=== PATIENT | male | born 1950 | race Hispanic/Latino ===

== ENCOUNTER → 2018-11-02 | Outpatient (CLI) | payer OTHER | END | disposition home or self-care (01) | LOC: OIH 11:00 | PROVIDERS: ATTEND Family Medicine | DX: J84.10 Pulmonary fibrosis, unspecified (principal); I10 Essential (primary) hypertension | CPT/HCPCS: 71046 ==

== ENCOUNTER → 2018-12-24 | Outpatient (CLI) | payer OTHER | END | disposition home or self-care (01) | LOC: SHCH 09:57 | PROVIDERS: ATTEND Internal Medicine Cardiovascular Disease | DX: I08.0 Rheumatic disorders of both mitral and aortic valves (principal) | CPT/HCPCS: 93306 ==

== ENCOUNTER → 2018-12-25 | Outpatient (CLI) | payer OTHER ==
[~2018-12-25] VITALS: Ht 172.7 cm; Wt 83.9 kg
[~2018-12-25] MED LIST: REGADENOSON 0.4 MG/5 ML PF SYG IVP SCH
== END | disposition home or self-care (01) ==
LOC: SHCH 07:57
PROVIDERS: ATTEND Internal Medicine Cardiovascular Disease
DX: I35.0 Nonrheumatic aortic (valve) stenosis (principal); R94.31 Abnormal electrocardiogram [ECG] [EKG]
CPT/HCPCS: 78452; A9500 ×2; J2785

== ENCOUNTER → 2020-04-21 | Outpatient (CLI) | payer OTHER | END | disposition home or self-care (01) | LOC: SHCH 11:27 | PROVIDERS: ATTEND Internal Medicine Cardiovascular Disease | DX: I10 Essential (primary) hypertension (principal) | CPT/HCPCS: 93306 ==

== ENCOUNTER → 2021-12-20 | Outpatient (CLI) | payer OTHER | END | disposition home or self-care (01) | LOC: SHCH 09:44 | PROVIDERS: ATTEND Internal Medicine Cardiovascular Disease | DX: I87.2 Venous insufficiency (chronic) (peripheral) (principal) | CPT/HCPCS: 93970 ==

== ENCOUNTER → 2022-01-22 | Outpatient (CLI) | payer OTHER | END | disposition home or self-care (01) | LOC: SHCH 08:49 | PROVIDERS: ATTEND Internal Medicine Cardiovascular Disease | DX: I35.0 Nonrheumatic aortic (valve) stenosis (principal); R06.02 Shortness of breath; R60.0 Localized edema | CPT/HCPCS: 78452; 93017; 96374; A9500 ×2; J2785 ==

== ENCOUNTER → 2022-07-06 | Outpatient (CLI) | payer OTHER | END | disposition home or self-care (01) | LOC: SHCH 13:18 | PROVIDERS: ATTEND Internal Medicine Cardiovascular Disease | DX: I87.2 Venous insufficiency (chronic) (peripheral) (principal); I70.203 Unspecified atherosclerosis of native arteries of extremities, bilateral legs | CPT/HCPCS: 93925; 93970 ==

== ENCOUNTER → 2023-01-29 | Outpatient (CLI) | payer OTHER | END | disposition home or self-care (01) | LOC: SHCH 07:41 | PROVIDERS: ATTEND Internal Medicine Cardiovascular Disease | DX: I08.0 Rheumatic disorders of both mitral and aortic valves (principal) | CPT/HCPCS: 93306 ==

== ENCOUNTER 2023-08-25 08:04 | Day surgery (SDC) | payer OTHER ==
[2023-08-21 13:21] LABS: BASOPHILS # (AUTO) 0.04 K/uL (0.00-0.20); BASOPHILS % (AUTO) 0.5 % (0.0-5.0); EOSINOPHILS # (AUTO) 0.21 K/uL (0.00-0.70); EOSINOPHILS % (AUTO) 2.5 % (0.0-8.0); HEMATOCRIT 39.4 % (42-54); IMMATURE GRANULOCYTE ABSOLUTE 0.03 K/uL (0-1); LYMPHOCYTES # (AUTO) 1.2 K/uL (1.0-4.8); MEAN CORPUSCULAR HEMOGLOBIN 29.1 pg (27.0-33.0); MEAN CORPUSCULAR HGB CONC 33.5 g/dL (32.0-36.0); MEAN CORPUSCULAR VOLUME 86.8 fL (79-99); MONOCYTES # (AUTO) 0.6 K/uL (0.1-1.0); MONOCYTES % (AUTO) 7.6 % (3.0-13.0); NEUTROPHILS # (AUTO) 6.1 K/uL (1.8-7.7); PLATELET COUNT (AUTO) 214 K/uL (130-400); RED BLOOD CELL COUNT(AUTO) 4.54 MIL/uL (4.50-6.20); RED CELL DISTRIBUTION WIDTH 13.6 % (11.0-15.5); WHITE BLOOD COUNT (AUTO) 8.3 K/uL (4.8-10.8)
[2023-08-21 13:30] LABS: POTASSIUM 4.6 mmol/L (3.5-5.1)
[2023-08-21 13:32] LABS: INR < 0.93 (0.85-1.15); PROTHROMBIN TIME 10.4 SEC (9.6-11.6)
[2023-08-21 13:57] VITALS: BP 156/59; PULSE 54; RESP 18
[2023-08-25] VITALS (13 sets, daily range): BP systolic 104–146; BP diastolic 43–68; PULSE 42–58; RESP 15–18
[~2023-08-25] VITALS: Ht 172.7 cm; Wt 83.7 kg
[~2023-08-25 08:04] MED LIST changes: +AMLO-258 PO; +CYAN100084 PO; +FAMO40TA7 PO; +METO-408 PO; +PANT40TA54 PO; +PRAV40TA3 PO; -REGADENOSON 0.4 MG/5 ML PF SYG IVP SCH; +TAMS-1 PO
[2023-08-25] MEDS ORDERED: 0.9%NACL 1000ML 1,000 ML IV ONE (08:38)
[2023-08-25] MEDS ORDERED: LIDOCAINE HCL 400MG/20ML VIAL ONE (10:17)
[2023-08-25] MEDS ORDERED: IOHEXOL-350 50ML VIAL IV ONE (10:17)
[2023-08-25] MEDS ORDERED: IOHEXOL 350 MG/ML 100ML INFUS..BTL IV ONE (10:17)
[2023-08-25] MEDS ORDERED: HEPARIN 10,000 UNIT/10ML (1,000 UNIT/ML) VIAL ONE (10:17)
[2023-08-25] MEDS ORDERED: NITROGLYCERIN 50MG VIAL ONE (10:18)
[2023-08-25] MEDS ORDERED: MIDAZOLAM HCL 1 MG/ML 2ML VIAL ONE ×2 (10:29→10:56)
[2023-08-25] MEDS ORDERED: FENTANYL CITRATE PF 50 MCG/1 ML 2ML VIAL ONE (10:29)
[2023-08-25] MEDS ORDERED: NITROGLYCERIN 0.4 MG SL TAB SL PRN (11:30)
[2023-08-25] MEDS ORDERED: GLUCAGON 1MG KIT 1 MG ML IM PRN (11:30)
[2023-08-25] MEDS ORDERED: 0.9%NACL 1000ML 1,000 ML IV SCH (11:30)
[2023-08-25] MEDS ORDERED: DEXTROSE 50%-WATER 50 ML DISP.SYRIN IV PRN (11:30)
== END 2023-08-25 17:20 | disposition home or self-care (01) ==
LOC: DAH 08:04
PROVIDERS: ATTEND Internal Medicine Cardiovascular Disease
DX: I25.110 Atherosclerotic heart disease of native coronary artery with unstable angina pectoris (principal); I37.1 Nonrheumatic pulmonary valve insufficiency; I77.810 Thoracic aortic ectasia; I11.0 Hypertensive heart disease with heart failure; I50.32 Chronic diastolic (congestive) heart failure; J44.9 Chronic obstructive pulmonary disease, unspecified; E78.5 Hyperlipidemia, unspecified; I87.1 Compression of vein; I87.2 Venous insufficiency (chronic) (peripheral); J90 Pleural effusion, not elsewhere classified; Z79.01 Long term (current) use of anticoagulants; Z79.899 Other long term (current) drug therapy; Z82.3 Family history of stroke; Z95.820 Peripheral vascular angioplasty status with implants and grafts
CPT/HCPCS: 80048; 85025; 85610; 85730; 36415 ×2; 71045; 93005; 93456; 93567; 83880; 93306; 93356; C1894 ×3; C1769 ×2; J3010; J3490 ×2; J7030; J1644 ×2; J2250 ×2; Q9967; A4215; A4222; A4221; A4663; A4216; A4606; Q9965; A4223 ×3; 99156; 99157

== ENCOUNTER 2023-11-03 09:32 | Emergency (ER) | payer OTHER ==
[~2023-11-03] VITALS: Ht 172.7 cm; Wt 74.8 kg
[~2023-11-03 09:32] MED LIST changes: +AEC81 PO; -AMLO-258 PO; -METO-408 PO
[2023-11-03 11:15] VITALS: BP 126/62; PULSE 82; RESP 17; O2SAT 100
== END 2023-11-03 11:35 | disposition home or self-care (01) ==
LOC: EDH 09:32
DX: T82.848A Pain due to vascular prosthetic devices, implants and grafts, initial encounter (principal); Z95.1 Presence of aortocoronary bypass graft; I10 Essential (primary) hypertension; E78.00 Pure hypercholesterolemia, unspecified; Z88.6 Allergy status to analgesic agent; Z79.82 Long term (current) use of aspirin; Z79.899 Other long term (current) drug therapy; Z98.890 Other specified postprocedural states
CPT/HCPCS: 71046

== ENCOUNTER → 2023-12-24 | Outpatient (CLI) | payer OTHER ==
[~2023-12-24] MED LIST changes: +IOHEXOL-350 75 ML VIAL IV ONE
== END | disposition home or self-care (01) ==
LOC: RAH 09:34
PROVIDERS: ATTEND Internal Medicine Cardiovascular Disease
DX: R06.02 Shortness of breath (principal); K44.0 Diaphragmatic hernia with obstruction, without gangrene; K80.20 Calculus of gallbladder without cholecystitis without obstruction; N28.1 Cyst of kidney, acquired; I51.7 Cardiomegaly; M47.9 Spondylosis, unspecified
CPT/HCPCS: 71270; Q9967

== ENCOUNTER → 2023-12-25 | Outpatient (CLI) | payer OTHER ==
[~2023-12-25] MED LIST changes: +FENTANYL CITRATE PF 50 MCG/1 ML 2ML VIAL ONE; +GLYCOPYRROLATE 0.2 MG/ML 5 ML VIAL ONE; +MIDAZOLAM HCL 1 MG/ML 2ML VIAL ONE; +PROPOFOL 10 MG/ML 20ML VIAL IV ONE; +ROCURONIUM BROMIDE 10MG/1ML 5ML VL ONE
== END | disposition home or self-care (01) ==
LOC: SHCH 13:28
PROVIDERS: ATTEND Internal Medicine Cardiovascular Disease
DX: I11.9 Hypertensive heart disease without heart failure (principal); R06.02 Shortness of breath; E78.5 Hyperlipidemia, unspecified; Z95.1 Presence of aortocoronary bypass graft
CPT/HCPCS: 93306; J3010 ×3; J3490 ×2; J2250; J2704; Q9967

== ENCOUNTER 2025-07-20 09:51 | Emergency (ER) | payer OTHER ==
[~2025-07-20] VITALS: Ht 172.7 cm; Wt 78.0 kg
[2025-07-20 10:32] LABS: NUCLEATED RED BLOOD CELLS 0.0 % (0.0-0.19); PLATELET COUNT (AUTO) 223.0 K/uL (130-400); RED BLOOD CELL COUNT(AUTO) 4.44 MIL/uL (4.50-6.20); RED CELL DISTRIBUTION WIDTH 13.4 % (11.0-15.5); WHITE BLOOD COUNT (AUTO) 6.1 K/uL (4.8-10.8)
[2025-07-20 10:40] LABS: CREATININE 1.0 mg/dL (0.5-1.3); GLOMERULAR FILTR. RATE CALC 78.0 mL/min (>90); GLUCOSE,RANDOM 164.0 mg/dL (70-105); SODIUM SERUM 142.0 mmol/L (136-145); UREA NITROGEN, BLOOD 12.0 mg/dL (7-18)
--- NOTE | 2025-07-20 10:57 | ERN ---
General Chief Complaint: Lower Extremity Pain/Injury Stated Complaint: LEG PAIN Time Seen by MD: 09:55 Source: patient History of Present Illness Initial Comments Patient is a 75-year-old gentleman coming in complaining of right back pain. Long with the back pain patient states that the pain radiates down the right leg through the gluteal region. Patient states that he has had something similar like this in the past saw his PCP sent him some anti spasmodic but states they are not working. Allergies: Coded Allergies: aspirin (Unverified Allergy, Severe, HIVES, 09/20/23) atorvastatin (Unverified Allergy, Unknown, SEVERE COUGH, 09/20/23) Home Meds Reported Medications Pantoprazole Sodium (Pantoprazole Sodium) 40 Mg Tablet.dr, 40 MG PO AM, TAB 09/17/23 Aspirin (ASPIRIN 81 MG ECTAB) 81 Mg Ectab, 81 MG PO HS, TAB.EC 09/17/23 Famotidine (Famotidine) 40 Mg Tablet, 40 MG PO HS, TAB 08/21/23 Pravastatin Sodium (Pravastatin Sodium) 40 Mg Tablet, 20 MG PO HS, TAB 08/21/23 Cyanocobalamin (Vitamin B-12) (B-12) 1,000 Mcg Tablet.er, 2000 MCG PO HS, TAB 08/21/23 Tamsulosin HCl (Flomax) 0.4 Mg Cap.er.24h, 0.8 MG PO HS, CAPSULE.DR 08/21/23 Past Medical History Past Medical History: Diabetes-Type II, High Cholesterol, Heart Disease, Hypertension, Hypothyroid Past Surgical History: CABG, Other Surgical History Other: RT ANKLE SX ROS Dictation CONSTITUTIONAL: No chills, no fever, no weakness, no diaphoresis, no malaise. HEAD/FACE: No signs of trauma. EENT: No eye pain, no blurred vision, no tearing, no double vision, no ear pain, no ear discharge, no nose pain, no nasal congestion, no throat pain, no throat swelling, no mouth pain. RESPIRATORY: No cough, no orthopnea, no SOB, no stridor, no wheezing. CARDIOVASCULAR: No chest pain, no edema, no palpitations, no syncope. GASTROINTESTINAL/ABDOMINAL: No abdominal pain, no constipation, no diarrhea, no nausea, no vomiting. GENITOURINARY: No abnormal discharge, no dysuria, no frequent urination, no hematuria. No complaints of pain in the genitals. MUSCULOSKELETAL: back pain, no gout, no joint pain, no joint swelling, muscle pain, no muscle stiffness, no neck pain. INTEGUMENTARY: No change in color, no change in hair/nails, no dryness, no lesion, no lumps, no rash. NEUROLOGICAL/PSYCH: No anxiety, not depressed, no emotional problem, no headache, no numbness, no pre-existing deficit, no history of seizures, no tremors, no weakness. HEMATOLOGIC/LYMPHATIC: Not anemic, no history of blood clots, no apparent bleeding, no bruising, glands not swollen. All Systems Negative, Except as Noted. Physical Exam Physical Exam Dictation VITAL SIGNS: Reviewed. GENERAL APPEARANCE: Alert, oriented x3, no acute distress, obese. HEAD AND FACE: Non-traumatic. EYES: PERRL, pink conjunctivas, eyelid no trauma, anterior chamber clear. EARS: Pinnas intact and no signs of trauma or erythema. Ear canals clear and no discharge. TMs no erythema. NOSE: No discharge, no bleeding. OROPHARYNX: Mouth normal, teeth no caries, tongue pink. Pharynx clear, no erythema. Tonsils no exudates, no abscesses noted. Mucous membrane moist. NECK: Supple, non-tender, no thyromegaly, no masses, no JVD, no bruits. BREAST: Deferred. CHEST: No tenderness, no crepitus, no paradoxical movement, no retractions. LUNGS: Clear, well-ventilated, symmetric, no rales, no wheezing, no rhonchi, no stridor, good breath sounds bilaterally. HEART: Regular rate, regular rhythm, no murmur, no gallops. VASCULAR: No peripheral edema. ABDOMEN: Soft, positive bowel sounds, nondistended, no guarding, nontender, no rebound, no masses no hepatomegaly, no splenomegaly, no Austin's sign, no hernias. RECTAL: Deferred. GENITAL: Deferred. NEUROLOGICAL: Normal speech, gross motor function intact, gross sensory function intact. MUSCULOSKELETAL: Neck nontender, full range of motion, back nontender, full range of motion. EXTREMITIES: Nontender, full range of motion. Right gluteal pain radiating down the right leg, piriformis muscle tenderness SKIN: Color pink, dry, no turgor, no rash, no lacerations, no abrasions, no contusions. LYMPHATICS: Deferred. Results Laboratory and Microbiology Lab and Micro Result Laboratory Tests Test 07/20/25 10:24 White Blood Count 6.1 K/uL (4.8-10.8) Red Blood Count 4.44 MIL/uL (4.50-6.20) L Hemoglobin 13.0 g/dL (14.0-18.0) L Hematocrit 39.3 % (42-54) L Mean Corpuscular Volume 88.5 fL (79-99) Mean Corpuscular Hemoglobin 29.3 pg (27.0-33.0) Mean Corpuscular Hemoglobin Concent 33.1 g/dL (32.0-36.0) Red Cell Distribution Width 13.4 % (11.0-15.5) Platelet Count 223 K/uL (130-400) Mean Platelet Volume 10.7 fL (7.5-10.5) H Nucleated Red Blood Cells 0.0 % (0.0-0.19) Sodium Level 142 mmol/L (136-145) Potassium Level 4.5 mmol/L (3.5-5.1) Chloride Level 104 mmol/L (101-111) Carbon Dioxide Level 29 mmol/L (21-32) Blood Urea Nitrogen 12 mg/dL (7-18) Creatinine 1.0 mg/dL (0.5-1.3) Glomerular Filtration Rate Calc 78 mL/min (>90) Random Glucose 164 mg/dL (70-105) H Total Calcium 9.0 mg/dL (8.5-10.1) Labs Reviewed?: Yes EKG/XRAY/US/CT/MRI X-RAY Comment X-ray of the hip-NAD MDM MDM: Differential diagnosis: Right-sided sciatica, right hip strain, right muscle strain, spasms of the lumbar area Rationale: Tests considered and ordered secondary to shared decision making inc lude: Previous outside records reviewed: Old ER visits. Risk of complication and/or morbidity or mortality of patient management: None Medications-Per medication reconciliation Need for hospitalization: Patient does not meet criteria for hospitalization. Need for emergency major/minor surgery: No Patient is a 75-year-old gentleman coming in complaining of right lower extremity pain. X-ray did not disclose acute findings. Patient received antispasmodics anti-inflammatories states that has pain has subsided. Patient will be discharged in stable condition with a diagnosis of right-sided sciatica. I did advised him appropriate follow up with PCP and/human resources support specialist for ongoing evaluation and management. ED Course Orders Procedure Category Date Status Time Cbc Without LAB 07/20/25 Complete Differential 10:15 Basic Metabolic Panel LAB 07/20/25 Complete 10:15 Hip Unilat 2-3vw Right RAD 07/20/25 Taken 10:27 Orphenadrine Citrate PHA 07/20/25 Complete (Norflex) 11:00 Acetaminophen 500mg PHA 07/20/25 Complete Tab (Tylenol 500mg T 11:00 Current Medications Medications (Trade) Dose Ordered Sig/Terence Route PRN Reason Start Time Stop Time Status Last Admin Dose Admin Acetaminophen (TYLenol 500MG TAB) 500 mg ONCE ONCE PO 07/20/25 11:00 07/20/25 11:01 DC Ketorolac Tromethamine (toRADol) 15 mg ONCE ONCE IM 07/20/25 11:00 07/20/25 10:45 DC Orphenadrine Citrate (Norflex) 60 mg ONCE ONCE IM 07/20/25 11:00 07/20/25 11:01 DC Vital Signs Date Time Temp Pulse Resp B/P (MAP) Pulse Ox O2 Delivery O2 Flow Rate FiO2 07/20/25 10:10 97.5 74 18 194/83 100 Room Air* 0 21 07/20/25 09:54 97.3 72 18 184/72 99 Room Air 0 DX & DISP Disposition: Discharge Departure Impression: Primary Impression: Sciatica, right side Condition: Stable Scripts Lidocaine (Lidocaine Pain Relief) 4 % Adh..patch 1 PATCH TP DAILY for 5 Days, #5 PATCH 0 Refills Prov: NASH LUNDY MD 07/20/25 Gabapentin (Gabapentin) 100 Mg Capsule 1 CAP PO BID for 7 Days, #14 CAP 0 Refills Prov: NASH LUNDY MD 07/20/25 Additional Instructions: FOLLOW-UP WITH PRIMARY CARE PROVIDER IN 1 TO 2 DAYS. TAKE MEDICATIONS DIRECTED HERE IN THE EMERGENCY ROOM. OKAY TO CONTINUE HOME MEDICATIONS UNLESS OTHERWISE DISCUSSED DURING YOUR VISIT IN THE EMERGENCY ROOM TODAY. RETURN TO YOUR NEAREST EMERGENCY ROOM IF SYMPTOMS WORSEN OR IF THERE IS NO IMPROVEMENT. CALL 911 IF YOU NEED IMMEDIATE ASSISTANCE. TAKE TYLENOL [id number] NEEDED AND IF NO CONTRAINDICATIONS ARE PRESENT. INCREASE ORAL HYDRATION. A WOUND CULTURE OR URINE CULTURE WAS ORDERED HERE IN THE EMERGENCY ROOM DEPARTMENT PLEASE FOLLOW-UP WITH PRIMARY CARE PROVIDER AND ADVISE THEM TO GET REPORTS FROM OUR FACILITY. IF YOU HAD ANY NESHA WRAP/SPLINTS THAT WERE APPLIED HERE, PLEASE DO NOT REMOVE THEM UNTIL YOU SEE YOUR PRIMARY CARE OR SPECIALTY. Referrals: Referrals: CODEY ARRIETA MD (PCP) ULISES PINEDA MD Time of Disposition: 11:31 YELENA CAMACHO MD Jul 20, 2025 10:57 NASH LUNDY MD Jul 20, 2025 11:33
[2025-07-20] MEDS ORDERED: ORPHENADRINE 60MG/2ML IM ONE (11:00)
[2025-07-20 11:57] VITALS: BP 169/59; PULSE 53; RESP 20; TEMP 98.1; O2SAT 100
--- NOTE | 2025-07-20 12:12 | HMCIMG ---
EXAM: XR Pelvis and right Hip, 2 Views. CLINICAL HISTORY: Rule out osteoarthritis COMPARISON: None provided. FINDINGS: BONES: No acute fracture. JOINTS: No dislocation. Minimal osteoarthritic changes are seen at both hip joints in the form of minimal narrowing of the hip joint spaces with no significant osteophyte formation. SOFT TISSUES: The soft tissues are unremarkable. A surgical prosthesis is seen at the pelvis, mostly an endovascular graft. IMPRESSION: 1. Minimal bilateral hip osteoarthritis 2. Surgical pelvic prosthesis, likely endovascular graft. /[place]
== END 2025-07-20 12:00 | disposition home or self-care (01) ==
LOC: EDH 09:51
DX: M54.31 Sciatica, right side (principal); E03.9 Hypothyroidism, unspecified; E11.9 Type 2 diabetes mellitus without complications; E78.00 Pure hypercholesterolemia, unspecified; I11.9 Hypertensive heart disease without heart failure; Z79.82 Long term (current) use of aspirin; Z88.6 Allergy status to analgesic agent; Z95.1 Presence of aortocoronary bypass graft; Z96.641 Presence of right artificial hip joint
CPT/HCPCS: 36415; 73502; 80048; 85027; 99284; J2360

== ENCOUNTER 2025-07-23 07:51 | Emergency (ER) | payer OTHER ==
[~2025-07-23] VITALS: Ht 172.7 cm; Wt 78.0 kg
[2025-07-23 07:54] VITALS: BP 124/79; PULSE 62; RESP 20; TEMP 97.9
--- NOTE | 2025-07-23 08:00 | NUR ---
PT JUST NOW PLACED IN ED BED 10
--- NOTE | 2025-07-23 08:03 | ERN ---
General Chief Complaint: Lower Extremity Pain/Injury Stated Complaint: RT SCIATICA PAIN Time Seen by MD: 07:55 Source: patient History of Present Illness Initial Comments Patient is a 75-year-old male coming in complaining of right-sided sciatica. Per patient in his had multiple visits to the ER with the same thing and states that the only medication that has helped some has a medication that is injected here. He is pending a visit to his patient resource specialist. Allergies: Coded Allergies: aspirin (Unverified Allergy, Severe, HIVES, 09/20/23) atorvastatin (Unverified Allergy, Unknown, SEVERE COUGH, 09/20/23) Home Meds Active Scripts Lidocaine (Lidocaine Pain Relief) 4 % Adh..patch, 1 PATCH TP DAILY for 5 Days, #5 PATCH 0 Refills Prov:NASH LUNDY MD 07/20/25 Gabapentin (Gabapentin) 100 Mg Capsule, 1 CAP PO BID for 7 Days, #14 CAP 0 Refills Prov:NASH LUNDY MD 07/20/25 Reported Medications Pantoprazole Sodium (Pantoprazole Sodium) 40 Mg Tablet.dr, 40 MG PO AM, TAB 09/17/23 Aspirin (ASPIRIN 81 MG ECTAB) 81 Mg Ectab, 81 MG PO HS, TAB.EC 09/17/23 Famotidine (Famotidine) 40 Mg Tablet, 40 MG PO HS, TAB 08/21/23 Pravastatin Sodium (Pravastatin Sodium) 40 Mg Tablet, 20 MG PO HS, TAB 08/21/23 Cyanocobalamin (Vitamin B-12) (B-12) 1,000 Mcg Tablet.er, 2000 MCG PO HS, TAB 08/21/23 Tamsulosin HCl (Flomax) 0.4 Mg Cap.er.24h, 0.8 MG PO HS, CAPSULE.DR 08/21/23 Past Medical History Past Medical History: Diabetes-Type II, High Cholesterol, Heart Disease, Hypertension, Hypothyroid Past Surgical History: CABG, Other Surgical History Other: RT ANKLE SX ROS Dictation CONSTITUTIONAL: No chills, no fever, no weakness, no diaphoresis, no malaise. HEAD/FACE: No signs of trauma. EENT: No eye pain, no blurred vision, no tearing, no double vision, no ear pain, no ear discharge, no nose pain, no nasal congestion, no throat pain, no throat swelling, no mouth pain. RESPIRATORY: No cough, no orthopnea, no SOB, no stridor, no wheezing. CARDIOVASCULAR: No chest pain, no edema, no palpitations, no syncope. GASTROINTESTINAL/ABDOMINAL: No abdominal pain, no constipation, no diarrhea, no nausea, no vomiting. GENITOURINARY: No abnormal discharge, no dysuria, no frequent urination, no hematuria. No complaints of pain in the genitals. MUSCULOSKELETAL: back pain, no gout, no joint pain, no joint swelling, muscle pain, no muscle stiffness, no neck pain. INTEGUMENTARY: No change in color, no change in hair/nails, no dryness, no lesion, no lumps, no rash. NEUROLOGICAL/PSYCH: No anxiety, not depressed, no emotional problem, no headache, no numbness, no pre-existing deficit, no history of seizures, no tremors, no weakness. HEMATOLOGIC/LYMPHATIC: Not anemic, no history of blood clots, no apparent bleeding, no bruising, glands not swollen. All Systems Negative, Except as Noted. Physical Exam Physical Exam Dictation VITAL SIGNS: Reviewed. GENERAL APPEARANCE: Alert, oriented x3, no acute distress, obese. HEAD AND FACE: Non-traumatic. EYES: PERRL, pink conjunctivas, eyelid no trauma, anterior chamber clear. EARS: Pinnas intact and no signs of trauma or erythema. Ear canals clear and no discharge. TMs no erythema. NOSE: No discharge, no bleeding. OROPHARYNX: Mouth normal, teeth no caries, tongue pink. Pharynx clear, no erythema. Tonsils no exudates, no abscesses noted. Mucous membrane moist. NECK: Supple, non-tender, no thyromegaly, no masses, no JVD, no bruits. BREAST: Deferred. CHEST: No tenderness, no crepitus, no paradoxical movement, no retractions. LUNGS: Clear, well-ventilated, symmetric, no rales, no wheezing, no rhonchi, no stridor, good breath sounds bilaterally. HEART: Regular rate, regular rhythm, no murmur, no gallops. VASCULAR: No peripheral edema. ABDOMEN: Soft, positive bowel sounds, nondistended, no guarding, nontender, no rebound, no masses no hepatomegaly, no splenomegaly, no Austin's sign, no hernias. RECTAL: Deferred. GENITAL: Deferred. NEUROLOGICAL: Normal speech, gross motor function intact, gross sensory function intact. MUSCULOSKELETAL: Neck nontender, full range of motion, back nontender, full range of motion. EXTREMITIES: Nontender, full range of motion. Right piriformis muscle tenderness on palpation SKIN: Color pink, dry, no turgor, no rash, no lacerations, no abrasions, no contusions. LYMPHATICS: Deferred. Results Laboratory and Microbiology Labs Reviewed?: Yes MDM MDM: Differential diagnosis: Right-sided sciatica, lumbar strain, acute on chronic back pain, Rationale: Tests considered and ordered secondary to shared decision making include: Previous outside records reviewed: Old ER visits. Risk of complication and/or morbidity or mortality of patient management: None Medications-Per medication reconciliation Need for hospitalization: Patient does not meet criteria for hospitalization. Need for emergency major/minor surgery: No Patient is a 75-year-old gentleman coming in complaining of right-sided sciatica. Patient has been having these symptoms for many months. He states that the only with thing that worse with the injections that he received here. Patient was injected with Norflex and Kenalog states he feels much better we will be discharged in stable condition I did advised him appropriate follow up with PCP and patient resource specialist for long-term management. ED Course Orders Procedure Category Date Status Time Orphenadrine Citrate PHA 07/23/25 Complete (Norflex) 08:00 Triamcinolone Acet PHA 07/23/25 Complete 40mg/Ml 1ml (Kenalog 08:00 Current Medications Medications (Trade) Dose Ordered Sig/Terence Route PRN Reason Start Time Stop Time Status Last Admin Dose Admin Orphenadrine Citrate (Norflex) 60 mg ONCE ONCE IM 07/23/25 08:00 07/23/25 08:07 DC 07/23/25 08:18 Triamcinolone Acetonide (Kenalog 40) 40 mg ONCE ONCE IM 07/23/25 08:00 07/23/25 08:07 DC 07/23/25 08:18 Vital Signs Date Time Temp Pulse Resp B/P (MAP) Pulse Ox O2 Delivery O2 Flow Rate FiO2 07/23/25 07:54 97.9 62 20 124/79 99 Room Air DX & DISP Disposition: Discharge Departure Impression: Primary Impression: Sciatica, right side Condition: Stable Additional Instructions: FOLLOW-UP WITH PRIMARY CARE PROVIDER IN 1 TO 2 DAYS. TAKE MEDICATIONS DIRECTED HERE IN THE EMERGENCY ROOM. OKAY TO CONTINUE HOME MEDICATIONS UNLESS OTHERWISE DISCUSSED DURING YOUR VISIT IN THE EMERGENCY ROOM TODAY. RETURN TO YOUR NEAREST EMERGENCY ROOM IF SYMPTOMS WORSEN OR IF THERE IS NO IMPROVEMENT. CALL 911 IF YOU NEED IMMEDIATE ASSISTANCE. TAKE TYLENOL [id number] NEEDED AND IF NO CONTRAINDICATIONS ARE PRESENT. INCREASE ORAL HYDRATION. A WOUND CULTURE OR URINE CULTURE WAS ORDERED HERE IN THE EMERGENCY ROOM DEPARTMENT PLEASE FOLLOW-UP WITH PRIMARY CARE PROVIDER AND ADVISE THEM TO GET REPORTS FROM OUR FACILITY. IF YOU HAD ANY NESHA WRAP/SPLINTS THAT WERE APPLIED HERE, PLEASE DO NOT REMOVE THEM UNTIL YOU SEE YOUR PRIMARY CARE OR SPECIALTY. Referrals: Referrals: CODEY ARRIETA MD (PCP) Time of Disposition: 08:41 NASH LUNDY MD Jul 23, 2025 08:03
[2025-07-23] MEDS: TRIAMCINOLONE ACETONIDE 40 MG/ML 1ML VIAL IM ONE (08:18)
[2025-07-23] MEDS: ORPHENADRINE 60MG/2ML IM ONE (08:18)
== END 2025-07-23 09:05 | disposition home or self-care (01) ==
LOC: EDH 07:51
DX: M54.31 Sciatica, right side (principal); E03.9 Hypothyroidism, unspecified; E11.9 Type 2 diabetes mellitus without complications; E78.00 Pure hypercholesterolemia, unspecified; I11.9 Hypertensive heart disease without heart failure; Z79.82 Long term (current) use of aspirin; Z79.899 Other long term (current) drug therapy; Z88.6 Allergy status to analgesic agent; Z95.1 Presence of aortocoronary bypass graft
CPT/HCPCS: 99284; 96372 ×2; J3301; J2360